=== PATIENT | male | born 1935 | race Caucasian/White ===

== ENCOUNTER 2017-08-22 20:32 | Emergency (ER) | payer MEDICARE ==
[~2017-08-22] VITALS: Ht 170.2 cm; Wt 88.3 kg
[2017-08-22 20:44] VITALS: BP 200/90; PULSE 68; RESP 18; TEMP 97.7; O2SAT 97
--- NOTE | 2017-08-22 21:00 | PD ---
HPI Chief Complaint: OD/ Ingestion Time Seen by Provider: 20:56 Travel History International Travel<30 days: No Contact w/Intl Traveler<30days: No Traveled to known affect area: No History of Present Illness HPI The patient is an 82-year-old male that accidentally took his medications twice at 5:00 PM and 8 PM. His medications are lisinopril 20 mg, Coreg 6.25 mg and metformin 500 mg. Other than his usual anxiety, he feels normal. He denies any nausea, diaphoresis, syncopal or near syncopal spells. 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) Cardiovascular Problems: Yes High Cholesterol: No Chest Pain: Yes (NEW CHEST PRESSURE) Congestive Heart Failure: No Endocrine: No GERD: No Genitourinary: No Hepatitis: No Hiatal Hernia: No Hypertension: Yes Immune Disorder: No Musculoskeletal: No Neurologic: No Psychiatric: Yes Respiratory: No Myocardial Infarction: No Ulcer: No Past Surgical History AICD: No Joint Replacement: No Pacemaker: No Social History Alcohol Use: No Tobacco Use: Yes (CIGARS 5 PER DAY) Substance Use: No Allergies-Medications (Allergen,Severity, Reaction): Coded Allergies: codeine (Unverified Allergy, Severe, 08/22/17) Review of Systems Except as stated in HPI: all other systems reviewed are Neg Physical Exam Narrative GENERAL: The patient is alert, oriented 3 in no apparent distress. His vital signs show blood pressure 200/90 but are otherwise normal. SKIN: Focused skin assessment warm/dry. HEAD: Atraumatic. Normocephalic. EYES: Pupils equal and round. No scleral icterus. No injection or drainage. ENT: No nasal bleeding or discharge. Mucous membranes pink and moist. NECK: Trachea midline. No JVD. CARDIOVASCULAR: Regular rate and rhythm. No murmur appreciated. RESPIRATORY: No accessory muscle use. Clear to auscultation. Breath sounds equal bilaterally. GASTROINTESTINAL: Abdomen soft, non-tender, nondistended. Hepatic and splenic margins not palpable. MUSCULOSKELETAL: No obvious deformities. No clubbing. No cyanosis. No edema. NEUROLOGICAL: Awake and alert. No obvious cranial nerve deficits. Motor grossly within normal limits. Normal speech. PSYCHIATRIC: Appropriate mood and affect; insight and judgment normal. Data Data Last Documented VS Vital Signs Date Time Temp Pulse Resp B/P (MAP) Pulse Ox O2 Delivery O2 Flow Rate FiO2 08/22/17 20:44 97.7 68 18 200/90 (126) 97 Orders Orders Blood Glucose (08/22/17 21:00) MDM Medical Decision Making Medical Screen Exam Complete: Yes Emergency Medical Condition: Yes Medical Record Reviewed: Yes Interpretation(s) The Accu-Chek is 133. Differential Diagnosis Overmedication side effects including: Hypotension, bradycardia, hypoglycemia, nausea, minimal overdose. Narrative Course The patient has a minimal overdose. he has no symptoms of overmedication side effects. Diagnosis Primary Impression: Accidental medication overdose Additional Instructions: You may need to write down when you take your medicines or developed some plan to avoid having this happen again. Disposition: 01 DISCHARGE HOME Condition: Stable Bhaskar Martinez MD Aug 22, 2017 21:00
[2017-08-22] MEDS ORDERED: RANI150T PO (21:17)
[2017-08-22] MEDS ORDERED: VITACAP7 PO (21:17)
[2017-08-22] MEDS ORDERED: AMLO10TA2 PO (21:17)
[2017-08-22] MEDS ORDERED: VITA100064 PO (21:17)
[2017-08-22] MEDS ORDERED: METF500T PO (21:17)
[2017-08-22] MEDS ORDERED: MULTTAB67 PO (21:17)
[2017-08-22] MEDS ORDERED: LISI-515 PO (21:17)
[2017-08-22] MEDS ORDERED: CARV6.252 PO (21:17)
[2017-08-22] MEDS ORDERED: LIPI20TA PO (21:17)
[2017-08-22] MEDS ORDERED: CLON0.5T PO (21:17)
[2017-08-22] MEDS ORDERED: DULO20 PO (21:17)
[2017-08-22 21:18] VITALS: BP 153/83; PULSE 67; RESP 18; O2SAT 98
== END 2017-08-22 21:36 | disposition home or self-care (01) ==
LOC: PHED 20:32
DX: T44.7X1A Poisoning by beta-adrenoreceptor antagonists, accidental (unintentional), initial encounter (principal); T38.3X1A Poisoning by insulin and oral hypoglycemic [antidiabetic] drugs, accidental (unintentional), initial encounter; I10 Essential (primary) hypertension; Z88.5 Allergy status to narcotic agent
CPT/HCPCS: 99282